=== PATIENT | male | born 1995 | race Caucasian/White ===

== ENCOUNTER 2017-04-30 16:22 | Inpatient (IN) | payer BC ==
[2017-04-30 17:43] VITALS: BMI 21.1
--- NOTE | 2017-04-30 22:30 | HP ---
CIWA Score - CIWA Score Nausea/Vomitin Muscle Tremors: 4-Moderate,w/Arms Extend Anxiety: 4-Mod. Anxious/Guarded Agitation: 4-Moderately Restless Paroxysmal Sweats: 1-Minimal Palms Moist Orientation: 0-Oriented Tacttile Disturbances: 0-None Auditory Disturbances: 0-None Visual Disturbances: 0-None Headache: 1-Very Mild CIWA-Ar Total Score: 16 Admission ROS BHS - HPI Chief Complaint: WITHDRAWAL SX Allergies/Adverse Reactions: Allergies Allergy/AdvReac Type Severity Reaction Status Date / Time No Known Allergies Allergy Verified 04/30/17 20:44 History of Present Illness: 21 YEARS OLD MALE WITH LONG HISTORY OF XANAX DEPENDENCE DENIES MEDICAL ISSUE HAS DEPRESSION ANXIETY IS ADMITTED TO DETOX Exam Limitations: No Limitations - Ebola screening Have you traveled outside of the country in the last 21 days: No Have you had contact with anyone from an Ebola affected area: No Have you been sick,other than usual withdrawal symptoms: No Do you have a fever: No - Review of Systems Constitutional: Loss of Appetite, Changes in sleep, Unintentional Wgt. Loss, Unexplained wgt Loss EENT: reports: No Symptoms Reported Respiratory: reports: No Symptoms reported Cardiac: reports: No Symptoms Reported GI: reports: Nausea, Poor Appetite, Poor Fluid Intake, Abdominal cramping : reports: No Symptoms Reported Musculoskeletal: reports: Back Pain, Joint Pain, Muscle Pain Integumentary: reports: No Symptoms Reported Neuro: reports: Seizure (2014), Tremors Endocrine: reports: No Symptoms Reported Hematology: reports: No Symptoms Reported Psychiatric: reports: Judgement Intact, Orientated x3, Anxious, Depressed Other Systems: Reviewed and Negative Patient History - Patient Medical History Hx Anemia: No Hx Asthma: No Hx Chronic Obstructive Pulmonary Disease (COPD): No Hx Cancer: No Hx Cardiac Disorders: No Hx Congestive Heart Failure: No Hx Hypertension: No Hx Hypercholesterolemia: No Hx Pacemaker: No HX Cerebrovascular Accident: No Hx Seizures: Yes (2014) Hx Dementia: No Hx Diabetes: No Hx Gastrointestinal Disorders: No Hx Liver Disease: No Hx Genitourinary Disorders: No Hx Sexually Transmitted Disorders: No Hx Renal Disease (ESRD): No Hx Thyroid Disease: No Hx Human Immunodeficiency Virus (HIV): No Hx Hepatitis C: No Hx Depression: Yes Hx Suicide Attempt: No Hx Bipolar Disorder: No Hx Schizophrenia: No - Patient Surgical History Past Surgical History: No Hx Neurologic Surgery: No Hx Cataract Extraction: No Hx Cardiac Surgery: No Hx Lung Surgery: No Hx Breast Surgery: No Hx Breast Biopsy: No Hx Abdominal Surgery: No Hx Appendectomy: No Hx Cholecystectomy: No Hx Genitourinary Surgery: No Hx Orthopedic Surgery: No - PPD History Previous Implant?: No Implanted On Prior [facility] Admission?: No PPD to be Administered?: Yes - Smoking Cessation Smoking history: Never smoked Have you smoked in the past 12 months: No Hx Chewing Tobacco Use: No Initiated information on smoking cessation: No - Substance & Tx. History Hx Alcohol Use: No Hx Substance Use: Yes Substance Use Type: Tranquilizers Hx Substance Use Treatment: No - Substances Abused Alprazolam (Xanax) Route: Oral Frequency: Daily Amount used: 16mg Age of first use: 17 Date of Last Use: 04/30/17 Marijuana/Hashish Route: Smoking Frequency: 3-6 times per week Amount used: 2 JOINTS Age of first use: 13 Date of Last Use: 04/28/17 Family Disease History - Family Disease History Family Disease History: Diabetes: Father, [place]: Grandparent (), Other: Grandparent Admission Physical Exam S - Vital Signs Vital Signs: Vital Signs - 24 hr 04/30/17 17:40 Temperature 99.2 F Pulse Rate 86 Respiratory 20 Rate Blood Pressure 141/89 - Physical General Appearance: Yes: Appropriately Dressed, Moderate Distress, Thin, Tremorous, Irritable, Sweating, Anxious HEENTM: Yes: Hearing grossly Normal, Normal ENT Inspection, Normocephalic, Normal Voice Respiratory: Yes: Chest Non-Tender, Lungs Clear, Normal Breath Sounds, No Respiratory Distress, No Accessory Muscle Use Neck: Yes: Supple, Trachea in good position Breast: Yes: Breasts Symetrical Cardiology: Yes: Regular Rhythm, Regular Rate, S1, S2 Abdominal: Yes: Non Tender, Soft Genitourinary: Yes: Within Normal Limits Back: Yes: Normal Inspection Musculoskeletal: Yes: full range of Motion, Gait Steady, Back pain, Muscle Pain Extremities: Yes: Normal Inspection, Normal Range of Motion, Non-Tender, Tremors Neurological: Yes: Fully Oriented, Alert, Motor Strength 5/5, Normal Response, Depressed Affect Integumentary: Yes: Warm Lymphatic: Yes: Within Normal Limits - Diagnostic (1) Sedative, hypnotic or anxiolytic dependence with withdrawal, uncomplicated Current Visit: Yes Status: Acute (2) Weight loss Current Visit: Yes Status: Acute (3) Depression (emotion) Current Visit: Yes Status: Suspected Qualifiers: Depression Type: dysthymia Qualified Code(s): F34.1 - Dysthymic disorder; F34.1 - Dysthymic disorder; F34.1 - Dysthymic disorder Cleared for Admission [facility] - Detox or Rehab [facility] Level of Care: Medically Managed Detox Regimen/Protocol: Valium [facility] Breath Alcohol Content Breath Alcohol Content: 0 Urine Drug Screen - Results Drug Screen Negative: No Urine Drug Screen Results: THC-Marijuana, BZO-Benzodiazepines
[2017-04-30] MEDS ORDERED: diazePAM 5 MG TABLET PO ONE (22:40)
[2017-04-30] MEDS ORDERED: LOPERAMIDE HCL 2 MG CAPSULE PO PRN (22:40)
[2017-04-30] MEDS ORDERED: MAGNESIUM HYDROX 2400MG/30ML ORAL SUSPENSION 30 ML CUP PO PRN (22:40)
[2017-04-30] MEDS ORDERED: MENTHOL/PHENOL 1 EACH UD MM PRN (22:40)
[2017-04-30] MEDS ORDERED: diphenhydrAMINE HCL 50 MG CAPSULE PO PRN (22:40)
[2017-04-30] MEDS ORDERED: MAGNESIUM CITRATE 300 ML BOTTLE PO PRN (22:40)
[2017-04-30] MEDS ORDERED: ACETAMINOPHEN 325 MG TABLET (FP) PO PRN (22:40)
[2017-04-30] MEDS ORDERED: guaiFENesin/D-METHORPHAN HB 10 ML UNIT-DOSE CUPS PO PRN (22:40)
[2017-04-30] MEDS ORDERED: P-EPHED 60MG/TRIPROLIDI 2.5MG TABLET PO PRN (22:40)
[2017-04-30] MEDS ORDERED: IBUPROFEN 400 MG TABLET (FP) PO PRN (22:40)
[2017-04-30] MEDS ORDERED: MAG HYDROX/AL HYDROX/SIMETH 30 ML UNIT-DOSE CUP PO PRN (22:40)
[2017-05-01] MEDS: diazePAM 5 MG TABLET PO SCH ×4 (01:05→22:02)
[2017-05-01] MEDS: diazePAM 5 MG TABLET PO PRN ×3 (01:09→17:10)
[2017-05-01 09:37] LABS: MCH 29.4 pg (25.7-33.7); MCHC 33.2 g/dl (32.0-35.9); MEAN CELL VOLUME 88.7 fl (80-96); MEAN PLT VOLUME 7.8 fl (7.5-11.1); PLATELET COUNT 199 K/MM3 (134-434); RDW 15.9 % (11.9-15.9); WHITE BLOOD COUNT 6.6 K/mm3 (4.0-10.0)
[2017-05-01 10:05] LABS: ALBUMIN 3.8 g/dl (3.4-5.0); ALK PHOS 59 U/L (45-117); ANION GAP 6 (8-16); BILIRUBIN,TOTAL 2.6 mg/dL (0.2-1.0); CALCIUM 8.6 mg/dL (8.5-10.1); CO2 29 mmol/L (21-32); CREATININE 0.7 mg/dL (0.7-1.3); GLUCOSE,RANDOM 78 mg/dL (74-106); SGOT/AST 15 U/L (15-37); SGPT/ALT 25 U/L (12-78); TOT PROT 6.9 g/dl (6.4-8.2)
[2017-05-01] MEDS: PRENATAL VITAMINS W/ FOLIC ACID TABLET (FP) PO SCH (10:18)
--- NOTE | 2017-05-01 11:41 | PN ---
[facility] CIWA - CIWA Score Nausea/Vomitin-No Nausea/No Vomiting Muscle Tremors: 4-Moderate,w/Arms Extend Anxiety: 4-Mod. Anxious/Guarded Agitation: 4-Moderately Restless Paroxysmal Sweats: 1-Minimal Palms Moist Orientation: 0-Oriented Tacttile Disturbances: 3-Moderate Itch/Numb/Burn Auditory Disturbances: 0-None Visual Disturbances: 0-None Headache: 0-None Present CIWA-Ar Total Score: 16 S Progress Note (SOAP) Subjective: C/O TREMORS, ANXIETY,SWEATS,LOSS OF APPETITE,FATIGUE. Objective: 05/01/17 11:38 Vital Signs Temperature 98.4 F 05/01/17 09:08 Pulse Rate 84 05/01/17 09:08 Respiratory Rate 18 05/01/17 09:08 Blood Pressure 137/84 05/01/17 09:08 O2 Sat by Pulse Oximetry (%) Laboratory Last Values WBC 6.6 K/mm3 (4.0-10.0) 05/01/17 08:00 RBC 5.17 M/mm3 (4.00-5.60) 05/01/17 08:00 Hgb 15.2 GM/dL (11.7-16.9) 05/01/17 08:00 Hct 45.8 % (35.4-49) 05/01/17 08:00 MCV 88.7 fl (80-96) 05/01/17 08:00 MCH 29.4 pg (25.7-33.7) 05/01/17 08:00 MCHC 33.2 g/dl (32.0-35.9) 05/01/17 08:00 RDW 15.9 % (11.9-15.9) 05/01/17 08:00 Plt Count 199 K/MM3 (134-434) 05/01/17 08:00 MPV 7.8 fl (7.5-11.1) 05/01/17 08:00 Sodium 136 mmol/L (136-145) 05/01/17 08:00 Potassium 3.2 mmol/L (3.5-5.1) L 05/01/17 08:00 Chloride 101 mmol/L (98-107) 05/01/17 08:00 Carbon Dioxide 29 mmol/L (21-32) 05/01/17 08:00 Anion Gap 6 (8-16) L 05/01/17 08:00 BUN 13 mg/dL (7-18) 05/01/17 08:00 Creatinine 0.7 mg/dL (0.7-1.3) 05/01/17 08:00 Creat Clearance w eGFR > 60 (>60) 05/01/17 08:00 Random Glucose 78 mg/dL (74-106) 05/01/17 08:00 Calcium 8.6 mg/dL (8.5-10.1) 05/01/17 08:00 Total Bilirubin 2.6 mg/dL (0.2-1.0) H 05/01/17 08:00 AST 15 U/L (15-37) 05/01/17 08:00 ALT 25 U/L (12-78) 05/01/17 08:00 Alkaline Phosphatase 59 U/L (45-117) 05/01/17 08:00 Total Protein 6.9 g/dl (6.4-8.2) 05/01/17 08:00 Albumin 3.8 g/dl (3.4-5.0) 05/01/17 08:00 K+ = 3.2 Assessment: 05/01/17 11:39 WITHDRAWAL SX HYPOKALEMIA Plan: CONTINUE DETOX KDUR 20 MEQ PO BID, FIRST DOSE NOW.
[2017-05-01] MEDS ORDERED: POTASSIUM CHLORIDE TABS 20 MEQ TABLET.ER (FP) PO ONE (11:42)
--- NOTE | 2017-05-01 16:53 | CONSULT ---
[facility] Psychiatric Consult - Data Date of interview: 05/01/17 Admission source: [facility] Identifying data: First admission to [facility] for this 21 y/o AA male seeking detox treatment on for marijuana and xanax dependence.Patient is single without children,domiciled and self-employed. Substance Abuse History: Confirmed by patient in this session. -Smoking Cessation. Smoking history: Never smoked. Have you smoked in the past 12 months: No. Hx Chewing Tobacco Use: No. Initiated information on smoking cessation: No. - Substance & Tx. History. Hx Alcohol Use: No. Hx Substance Use: Yes. Substance Use Type: Tranquilizers. Hx Substance Use Treatment: No. - Substances Abused. Alprazolam (Xanax). Route: Oral. Frequency: Daily. Amount used: 16mg. Age of first use: 17. Date of Last Use: 04/30/17. Marijuana/Hashish. Route: Smoking. Frequency: 3-6 times per week. Amount used : 2 JOINTS. Age of first use: 13. Date of Last Use: 04/28/17 Medical History: Good general health. Psychiatric History: Patient denies. Physical/Sexual Abuse/Trauma History: No history of abuse.Stressor : recent of a classmate (accidental overdose with drugs as per patient). Additional Comment: Urine Drug Screen Results: THC-Marijuana, BZO- Benzodiazepines.Noted. Mental Status Exam - Mental Status Exam Alert and Oriented to: Time, Place, Person Cognitive Function: Good Patient Appearance: Well Groomed (neat ) Mood: Nervous, Anxious, Hopeful Affect: Mood Congruent Patient Behavior: Fatigued, Appropriate (well-mannered), Cooperative Speech Pattern: Clear, Appropriate Voice Loudness: Normal Thought Process: Goal Oriented Thought Disorder: Not Present Hallucinations: Denies Suicidal Ideation: Denies Homicidal Ideation: Denies Insight/Judgement: Poor Sleep: Poorly Appetite: Good Muscle strength/Tone: Normal Gait/Station: Normal Psychiatric Findings - Problem List ([place] 1, 2,3) (1) Cannabis dependence, uncomplicated Current Visit: Yes Status: Acute (2) Sedative, hypnotic or anxiolytic dependence with withdrawal, uncomplicated Current Visit: Yes Status: Acute (3) Substance induced mood disorder Current Visit: Yes Status: Acute (4) Insomnia Current Visit: Yes Status: Acute - Initial Treatment Plan Initial Treatment Plan: Psychoeducation.Detoxification.Insomnia is addressed with benadryl 50 mg po hs.Side effects/benefits discussed with patient.Agrees with proposed care.Observation.
[2017-05-01 17:09] LABS: URINE APPEARANCE SLCLOUDY; URINE BILIRUBIN NEGATIVE (NEGATIVE); URINE BLOOD NEGATIVE (NEGATIVE); URINE COLOR DKYELLOW; URINE GLUCOSE (UA) NEGATIVE (NEGATIVE); URINE KETONE 2+ (NEGATIVE); URINE NITRITE NEGATIVE (NEGATIVE); URINE PROTEIN NEGATIVE (NEGATIVE); URINE UROBILINOGEN 4.0 E.U/dl mg/dL (0.2-1.0)
[2017-05-01 17:14] LABS: URINE LEUK ESTERASE 1+ (NEGATIVE)
[2017-05-01 18:02] LABS: URINE MUCUS FEW; URINE RBC <1 /hpf (0-3); URINE WBC 9 /hpf (3-5)
--- NOTE | 2017-05-01 20:41 | EKG ---
Test Reason : Blood Pressure : / mmHG Vent. Rate : 082 BPM Atrial Rate : 082 BPM P-R Int : 112 ms QRS Dur : 098 ms QT Int : 360 ms P-R-T Axes : 080 082 063 degrees QTc Int : 420 ms SINUS RHYTHM WITH MARKED SINUS ARRHYTHMIA RIGHT ATRIAL ENLARGEMENT BORDERLINE ECG NO PREVIOUS ECGS AVAILABLE REPEAT EKG IF CLINICALLY INDICATED Confirmed by LEN HENRIQUEZ MD ([id number]) on 05/01/2017 8:40:54 PM Referred By: Deion Moran Confirmed By:LEN HENRIQUEZ MD
[2017-05-01] MEDS: THIAMINE HCL 100 MG TABLET (FP) PO SCH (22:01)
[2017-05-01] MEDS: POTASSIUM CHLORIDE TABS 20 MEQ TABLET.ER (FP) PO SCH (22:02)
[2017-05-02] MEDS: diazePAM 5 MG TABLET PO PRN ×3 (05:46→17:17)
[2017-05-02] MEDS: PRENATAL VITAMINS W/ FOLIC ACID TABLET (FP) PO SCH (10:14)
[2017-05-02] MEDS: POTASSIUM CHLORIDE TABS 20 MEQ TABLET.ER (FP) PO SCH ×2 (10:14→22:02)
[2017-05-02] MEDS: diazePAM 5 MG TABLET PO SCH ×2 (10:15→22:02)
--- NOTE | 2017-05-02 11:22 | PN ---
[facility] CIWA - CIWA Score Nausea/Vomitin-No Nausea/No Vomiting Muscle Tremors: 4-Moderate,w/Arms Extend Anxiety: 4-Mod. Anxious/Guarded Agitation: 4-Moderately Restless Paroxysmal Sweats: 1-Minimal Palms Moist Orientation: 0-Oriented Tacttile Disturbances: 3-Moderate Itch/Numb/Burn Auditory Disturbances: 0-None Visual Disturbances: 0-None Headache: 0-None Present CIWA-Ar Total Score: 16 S Progress Note (SOAP) Subjective: ANXIETY,TREMORS,NASAL CONGESTIONS/RUNNY NOSE-PT STATESHX ALLERGIC RHINITIS AND TAKES ZYRTEC. Objective: 05/02/17 11:25 Vital Signs Temperature 97.1 F L 05/02/17 09:16 Pulse Rate 79 05/02/17 09:16 Respiratory Rate 18 05/02/17 09:16 Blood Pressure 122/56 05/02/17 09:16 O2 Sat by Pulse Oximetry (%) Laboratory Last Values WBC 6.6 K/mm3 (4.0-10.0) 05/01/17 08:00 RBC 5.17 M/mm3 (4.00-5.60) 05/01/17 08:00 Hgb 15.2 GM/dL (11.7-16.9) 05/01/17 08:00 Hct 45.8 % (35.4-49) 05/01/17 08:00 MCV 88.7 fl (80-96) 05/01/17 08:00 MCH 29.4 pg (25.7-33.7) 05/01/17 08:00 MCHC 33.2 g/dl (32.0-35.9) 05/01/17 08:00 RDW 15.9 % (11.9-15.9) 05/01/17 08:00 Plt Count 199 K/MM3 (134-434) 05/01/17 08:00 MPV 7.8 fl (7.5-11.1) 05/01/17 08:00 Sodium 136 mmol/L (136-145) 05/01/17 08:00 Potassium 3.2 mmol/L (3.5-5.1) L 05/01/17 08:00 Chloride 101 mmol/L (98-107) 05/01/17 08:00 Carbon Dioxide 29 mmol/L (21-32) 05/01/17 08:00 Anion Gap 6 (8-16) L 05/01/17 08:00 BUN 13 mg/dL (7-18) 05/01/17 08:00 Creatinine 0.7 mg/dL (0.7-1.3) 05/01/17 08:00 Creat Clearance w eGFR > 60 (>60) 05/01/17 08:00 Random Glucose 78 mg/dL (74-106) 05/01/17 08:00 Calcium 8.6 mg/dL (8.5-10.1) 05/01/17 08:00 Total Bilirubin 2.6 mg/dL (0.2-1.0) H 05/01/17 08:00 AST 15 U/L (15-37) 05/01/17 08:00 ALT 25 U/L (12-78) 05/01/17 08:00 Alkaline Phosphatase 59 U/L (45-117) 05/01/17 08:00 Total Protein 6.9 g/dl (6.4-8.2) 05/01/17 08:00 Albumin 3.8 g/dl (3.4-5.0) 05/01/17 08:00 Urine Color Dkyellow 05/01/17 13:30 Urine Appearance Slcloudy 05/01/17 13:30 Urine pH 6.0 (5.0-8.0) 05/01/17 13:30 Ur Specific [place] 1.020 (1.005-1.025) 05/01/17 13:30 Urine Protein Negative (NEGATIVE) 05/01/17 13:30 Urine Glucose (UA) Negative (NEGATIVE) 05/01/17 13:30 Urine Ketones 2+ (NEGATIVE) H 05/01/17 13:30 Urine Blood Negative (NEGATIVE) 05/01/17 13:30 Urine Nitrite Negative (NEGATIVE) 05/01/17 13:30 Urine Bilirubin Negative (NEGATIVE) 05/01/17 13:30 Urine Urobilinogen 4.0 e.u/dl mg/dL (0.2-1.0) 05/01/17 13:30 Urine RBC <1 /hpf (0-3) 05/01/17 13:30 Urine WBC 9 /hpf (3-5) 05/01/17 13:30 Urine Mucus Few 05/01/17 13:30 RPR Titer Nonreactive (NONREACTIVE) 05/01/17 08:00 Hepatitis C Antibody 0.1 s/co ratio (0.0-0.9) 05/01/17 08:00 STARTED ON KDUR Assessment: 05/02/17 11:26 WITHDRAWAL SX Plan: CONTINUE DETOX CLARITIN 10 MG PO DAILY
[2017-05-02] MEDS: LORATADINE 10 MG TABLET PO SCH (12:25)
[2017-05-02] MEDS: CYCLOBENZAPRINE HCL 10 MG TABLET (FP) PO PRN ×2 (18:03→22:02)
[2017-05-02] MEDS: hydrOXYzine PAMOATE 50 MG CAPSULE (FP) PO PRN (22:02)
[2017-05-02] MEDS: THIAMINE HCL 100 MG TABLET (FP) PO SCH (22:39)
[2017-05-03] MEDS: diazePAM 5 MG TABLET PO PRN (03:48)
[2017-05-03] MEDS: hydrOXYzine PAMOATE 50 MG CAPSULE (FP) PO PRN (05:09)
[2017-05-03] MEDS: POTASSIUM CHLORIDE TABS 20 MEQ TABLET.ER (FP) PO SCH (10:02)
[2017-05-03] MEDS: diazePAM 5 MG TABLET PO SCH (10:03)
[2017-05-03] MEDS: LORATADINE 10 MG TABLET PO SCH (10:03)
[2017-05-03] MEDS: PRENATAL VITAMINS W/ FOLIC ACID TABLET (FP) PO SCH (10:03)
--- NOTE | 2017-05-03 10:27 | PN ---
S Progress Note (SOAP) Subjective: DECREASED ANXIETY,SWEATS,FATIGUE. IN DAYROOM WITH PEERS EATING BREAKFAST. IMPROVED APPETITE TODAY.ALERT O X 3. Objective: 05/03/17 10:24 Vital Signs Temperature 97.8 F 05/03/17 08:56 Pulse Rate 69 05/03/17 08:56 Respiratory Rate 18 05/03/17 08:56 Blood Pressure 102/50 05/03/17 08:56 O2 Sat by Pulse Oximetry (%) Laboratory Last Values WBC 6.6 K/mm3 (4.0-10.0) 05/01/17 08:00 RBC 5.17 M/mm3 (4.00-5.60) 05/01/17 08:00 Hgb 15.2 GM/dL (11.7-16.9) 05/01/17 08:00 Hct 45.8 % (35.4-49) 05/01/17 08:00 MCV 88.7 fl (80-96) 05/01/17 08:00 MCH 29.4 pg (25.7-33.7) 05/01/17 08:00 MCHC 33.2 g/dl (32.0-35.9) 05/01/17 08:00 RDW 15.9 % (11.9-15.9) 05/01/17 08:00 Plt Count 199 K/MM3 (134-434) 05/01/17 08:00 MPV 7.8 fl (7.5-11.1) 05/01/17 08:00 Sodium 136 mmol/L (136-145) 05/01/17 08:00 Potassium 3.2 mmol/L (3.5-5.1) L 05/01/17 08:00 Chloride 101 mmol/L (98-107) 05/01/17 08:00 Carbon Dioxide 29 mmol/L (21-32) 05/01/17 08:00 Anion Gap 6 (8-16) L 05/01/17 08:00 BUN 13 mg/dL (7-18) 05/01/17 08:00 Creatinine 0.7 mg/dL (0.7-1.3) 05/01/17 08:00 Creat Clearance w eGFR > 60 (>60) 05/01/17 08:00 Random Glucose 78 mg/dL (74-106) 05/01/17 08:00 Calcium 8.6 mg/dL (8.5-10.1) 05/01/17 08:00 Total Bilirubin 2.6 mg/dL (0.2-1.0) H 05/01/17 08:00 AST 15 U/L (15-37) 05/01/17 08:00 ALT 25 U/L (12-78) 05/01/17 08:00 Alkaline Phosphatase 59 U/L (45-117) 05/01/17 08:00 Total Protein 6.9 g/dl (6.4-8.2) 05/01/17 08:00 Albumin 3.8 g/dl (3.4-5.0) 05/01/17 08:00 Urine Color Dkyellow 05/01/17 13:30 Urine Appearance Slcloudy 05/01/17 13:30 Urine pH 6.0 (5.0-8.0) 05/01/17 13:30 Ur Specific [place] 1.020 (1.005-1.025) 05/01/17 13:30 Urine Protein Negative (NEGATIVE) 05/01/17 13:30 Urine Glucose (UA) Negative (NEGATIVE) 05/01/17 13:30 Urine Ketones 2+ (NEGATIVE) H 05/01/17 13:30 Urine Blood Negative (NEGATIVE) 05/01/17 13:30 Urine Nitrite Negative (NEGATIVE) 05/01/17 13:30 Urine Bilirubin Negative (NEGATIVE) 05/01/17 13:30 Urine Urobilinogen 4.0 e.u/dl mg/dL (0.2-1.0) 05/01/17 13:30 Urine RBC <1 /hpf (0-3) 05/01/17 13:30 Urine WBC 9 /hpf (3-5) 05/01/17 13:30 Urine Mucus Few 05/01/17 13:30 RPR Titer Nonreactive (NONREACTIVE) 05/01/17 08:00 Hepatitis C Antibody 0.1 s/co ratio (0.0-0.9) 05/01/17 08:00 05/03/17 10:25 Assessment: 05/03/17 10:26 WITHDRAWAL SX Plan: CONTINUE DETOX K+ REPEAT ORDERED TODAY.
[2017-05-03 12:37] VITALS: BP 118/74; PULSE 96; TEMP 97.7
--- NOTE | 2017-05-04 09:29 | DS ---
[facility] Detox Discharge Summary Admission Date: 04/30/17 Discharge Date: 05/03/17 (AMA) - History Present History: Cannabis Dependence, Sedative Dependence Additional Comments: PT DECLINED TO COMPLETE DETOX PER PROTOCOL FOR PERSONAL REASONS. ALL EFFORTS TO ENCOURAGE PATIENT TO COMPLETE DETOX FAILED. PT WAS EDUCATED ON THE DANGERS OF ABRUPT TERMINATION TOD TAPERED DOSE PROTOCOL. MEANWHILE PT PROGRESSED NICELY TILL SIGNED OUT AMA. Pertinent Past History: ALLERGIC RHINITIS - Physical Exam Results Vital Signs: Vital Signs Temperature 97.7 F 05/03/17 12:35 Pulse Rate 96 H 05/03/17 12:35 Respiratory Rate 20 05/03/17 12:35 Blood Pressure 118/74 05/03/17 12:35 O2 Sat by Pulse Oximetry (%) Pertinent Admission Physical Exam Findings: HYPOKALEMIA WITHDRAWAL SX Laboratory Last Values WBC 6.6 K/mm3 (4.0-10.0) 05/01/17 08:00 RBC 5.17 M/mm3 (4.00-5.60) 05/01/17 08:00 Hgb 15.2 GM/dL (11.7-16.9) 05/01/17 08:00 Hct 45.8 % (35.4-49) 05/01/17 08:00 MCV 88.7 fl (80-96) 05/01/17 08:00 MCH 29.4 pg (25.7-33.7) 05/01/17 08:00 MCHC 33.2 g/dl (32.0-35.9) 05/01/17 08:00 RDW 15.9 % (11.9-15.9) 05/01/17 08:00 Plt Count 199 K/MM3 (134-434) 05/01/17 08:00 MPV 7.8 fl (7.5-11.1) 05/01/17 08:00 Sodium 136 mmol/L (136-145) 05/01/17 08:00 Potassium 4.2 mmol/L (3.5-5.1) D 05/03/17 12:30 Chloride 101 mmol/L (98-107) 05/01/17 08:00 Carbon Dioxide 29 mmol/L (21-32) 05/01/17 08:00 Anion Gap 6 (8-16) L 05/01/17 08:00 BUN 13 mg/dL (7-18) 05/01/17 08:00 Creatinine 0.7 mg/dL (0.7-1.3) 05/01/17 08:00 Creat Clearance w eGFR > 60 (>60) 05/01/17 08:00 Random Glucose 78 mg/dL (74-106) 05/01/17 08:00 Calcium 8.6 mg/dL (8.5-10.1) 05/01/17 08:00 Total Bilirubin 2.6 mg/dL (0.2-1.0) H 05/01/17 08:00 AST 15 U/L (15-37) 05/01/17 08:00 ALT 25 U/L (12-78) 05/01/17 08:00 Alkaline Phosphatase 59 U/L (45-117) 05/01/17 08:00 Total Protein 6.9 g/dl (6.4-8.2) 05/01/17 08:00 Albumin 3.8 g/dl (3.4-5.0) 05/01/17 08:00 Urine Color Dkyellow 05/01/17 13:30 Urine Appearance Slcloudy 05/01/17 13:30 Urine pH 6.0 (5.0-8.0) 05/01/17 13:30 Ur Specific [place] 1.020 (1.005-1.025) 05/01/17 13:30 Urine Protein Negative (NEGATIVE) 05/01/17 13:30 Urine Glucose (UA) Negative (NEGATIVE) 05/01/17 13:30 Urine Ketones 2+ (NEGATIVE) H 05/01/17 13:30 Urine Blood Negative (NEGATIVE) 05/01/17 13:30 Urine Nitrite Negative (NEGATIVE) 05/01/17 13:30 Urine Bilirubin Negative (NEGATIVE) 05/01/17 13:30 Urine Urobilinogen 4.0 e.u/dl mg/dL (0.2-1.0) 05/01/17 13:30 Urine RBC <1 /hpf (0-3) 05/01/17 13:30 Urine WBC 9 /hpf (3-5) 05/01/17 13:30 Urine Mucus Few 05/01/17 13:30 RPR Titer Nonreactive (NONREACTIVE) 05/01/17 08:00 Hepatitis C Antibody 0.1 s/co ratio (0.0-0.9) 05/01/17 08:00 HYPOKALEMIA CORRECTED. - Treatment Hospital Course: Detox Protocol Followed, Discharged Condition Good - Medication Discharge Medications: Ambulatory Orders NK [No Known Home Medication] 04/30/17 - Diagnosis (1) Sedative, hypnotic or anxiolytic dependence with withdrawal, uncomplicated Status: Acute (2) Weight loss Status: Acute (3) History of seizure Status: Suspected (4) Cannabis dependence, uncomplicated Status: Acute (5) Allergic rhinitis Status: Chronic Qualifiers: Chronicity: chronic Allergic rhinitis trigger: unspecified Allergic rhinitis seasonality: unspecified seasonality Qualified Code(s) : J30.9 - Allergic rhinitis, unspecified; J30.9 - Allergic rhinitis, unspecified (6) Hypokalemia Status: Acute - AMA Did Patient Leave Against Medical Advice: No (AMA)
[2017-05-04] MEDS ORDERED: diazePAM 5 MG TABLET PO SCH (10:00)
== END 2017-05-03 15:07 | disposition left against medical advice (07) | DRG 770 ==
LOC: YASAS 16:22 → Y3N 23:15
PROVIDERS: ADMIT Internal Medicine; ATTEND Internal Medicine
PROC: HZ2ZZZZ Detoxification Services for Substance Abuse Treatment (ICD-10-PCS; principal; 2017-04-30)
DX: F13.230 Sedative, hypnotic or anxiolytic dependence with withdrawal, uncomplicated (principal); F12.20 Cannabis dependence, uncomplicated; F19.24 Other psychoactive substance dependence with psychoactive substance-induced mood disorder; F34.1 Dysthymic disorder; J30.9 Allergic rhinitis, unspecified; E87.6 Hypokalemia; G47.00 Insomnia, unspecified; Z86.69 Personal history of other diseases of the nervous system and sense organs; Z87.898 Personal history of other specified conditions
CPT/HCPCS: 36415; 80053; 81003; 81015; 84132; 85027; 86593; 86803; 93005; 93010